=== PATIENT | female | born 1980 | race American Indian/Alaskan Native ===

== ENCOUNTER 2017-01-20 06:39 | Emergency (ER) | payer OTHER ==
[2017-01-20 07:28] VITALS: BP 125/86
[2017-01-20 08:13] LABS: Bilirubin,Urine NEG (Negative); Blood,Urine MOD (Negative); Ketones,Urine NEG (Negative); Leukocyte Esterase,Urine TR (Negative); Mucus,Urine FEW /HPF; Nitrite,Urine NEG (Negative); Protein,Urine <15 mg/dL mg/dL (Negative); Urobilinogen,Urine < 2.0 mg/dL (<2.0)
[2017-01-20 08:15] LABS: Basophils % (Auto) 0.3 % (0.0-1.8); Eosinophils % (Auto) 3.3 % (0.0-4.3); Hematocrit 38.2 % (30.3-42.9); Hemoglobin 13.1 gm/dl (10.1-14.3); Mean Corpuscular HGB Conc 34 % (30-34); Mean Corpuscular Hemoglobin 32 pg (28-32); Mean Corpuscular Volume 93 fl (79-97); Platelet Count 219 K/mm3 (140-440); Red Blood Count 4.11 M/mm3 (3.65-5.03); Red Cell Distribution Width 12.9 % (13.2-15.2); White Blood Count 6.5 K/mm3 (4.5-11.0)
[2017-01-20 08:17] LABS: Alanine Aminotransferase 15 units/L (7-56); Albumin 4.1 g/dL (3.9-5); Albumin/Globulin Ratio 1.5 %; Alkaline Phosphatase 80 units/L (35-129); Anion Gap 17 mmol/L; BUN/Creatinine Ratio 16.66; Blood Urea Nitrogen 10 mg/dL (7-17); Calcium 9.3 mg/dL (8.4-10.2); Carbon Dioxide 25 mmol/L (22-30); Chloride 101.6 mmol/L (98-107); Glucose 97 mg/dL (65-100); Lipase 42 units/L (13-60); Sodium 140 mmol/L (137-145); Total Protein 6.9 g/dL (6.3-8.2)
--- NOTE | 2017-01-24 16:07 | ED Elopement Review ---
ED Pt Elopement review - Results review Lab results: Laboratory Tests 01/20/17 01/20/17 01/20/17 07:31 07:31 07:37 WBC 6.5 RBC 4.11 Hgb 13.1 Hct 38.2 MCV 93 MCH 32 MCHC 34 RDW 12.9 L Plt Count 219 Lymph % (Auto) 30.7 [place] % (Auto) 6.5 Eos % (Auto) 3.3 Baso % (Auto) 0.3 Lymph # 2.0 [place] # 0.4 Eos # 0.2 Baso # 0.0 Seg Neutrophils % 59.2 Seg Neutrophils # 3.8 Sodium 140 Potassium 4.0 Chloride 101.6 Carbon Dioxide 25 Anion Gap 17 BUN 10 Creatinine 0.6 L Estimated GFR > 60 BUN/Creatinine Ratio 16.66 Glucose 97 Calcium 9.3 Total Bilirubin 0.20 AST 20 ALT 15 Alkaline Phosphatase 80 Total Protein 6.9 Albumin 4.1 Albumin/Globulin Ratio 1.5 Lipase 42 Urine Color Yellow Urine Turbidity Clear Urine pH 6.0 Ur Specific [place] 1.016 Urine Protein <15 mg/dl Urine Glucose (UA) Neg Urine Ketones Neg Urine Blood Mod Urine Nitrite Neg Urine Bilirubin Neg Urine Urobilinogen < 2.0 Ur Leukocyte Esterase Tr Urine WBC (Auto) 2.0 Urine RBC (Auto) 6.0 U Epithel Cells (Auto) 2.0 Urine Mucus Few - Call Back decision Pt Call Back Decision: No action required
== END 2017-01-20 21:57 | disposition left against medical advice (07) ==
LOC: ED 06:39
DX: R10.9 Unspecified abdominal pain (principal); M54.9 Dorsalgia, unspecified; R11.0 Nausea; R19.7 Diarrhea, unspecified; Z87.891 Personal history of nicotine dependence; Z53.21 Procedure and treatment not carried out due to patient leaving prior to being seen by health care provider
CPT/HCPCS: 36415; 80053; 81001; 83690; 85025